=== PATIENT | female | born 1950 | race Caucasian/White ===

== ENCOUNTER 2017-01-06 13:06 | Emergency (ER) | payer OTHER ==
[~2017-01-06] VITALS: Ht 154.9 cm; Wt 98.9 kg
[2017-01-06 13:06] VITALS: BP_SYST 143
[~2017-01-06 13:06] MED LIST: ALBU8.5H8 INH; BACL10TA PO; FLUTICASONE PROP; GABA-531 PO; INSU100V SQ; LACT10SO66 PO; MELA3TAB37 PO; METO2.5T6 PO; NPH,100V SUBCUT; OMEP40CA33 PO; RANI-362 PO; RIFA550T5 PO; SPIR25TA4 PO
--- NOTE | 2017-01-06 13:06 | NUR ---
BROUGHT BACK TO BED #7 VIA WHEELCHAIR, PLACED IN BED AND TRIAGED. REPORT GIVEN TO POOL
--- NOTE | 2017-01-06 13:08 | NUR ---
Pt states had stress test yesterday and has had headache, jaw & chest pressure along w/ intermittent shortness of breath w/ exertion. No shortness of breath noted at this time. No other complaints/injuries per pt or noted.
--- NOTE | 2017-01-06 13:10 | NUR ---
ER Dr. Rios at bedside examining patient.
[2017-01-06 14:16] LABS: BASOPHILS % (AUTO) 0.8 % (0.0-2.0); EOSINOPHILS % (AUTO) 0.7 % (0.0-4.0); HEMATOCRIT 31.5 % (36-48); HEMOGLOBIN 10.4 g/dL (12.0-16.0); LYMPHOCYTES # (AUTO) 0.9 K/uL (1.0-5.5); LYMPHOCYTES % (AUTO) 17.8 % (20.5-51.5); MEAN CORPUSCULAR HEMOGLOBIN 28 pg (27-31); MEAN CORPUSCULAR HGB CONC 33 % (32-36); MEAN CORPUSCULAR VOLUME 85 fL (79.0-98.0); MONOCYTES # (AUTO) 0.5 K/uL (0.0-1.0); MONOCYTES % (AUTO) 10.2 % (1.7-9.3); NEUTROPHILS # (AUTO) 3.7 K/uL (1.8-7.7); NEUTROPHILS % (AUTO) 70.5 % (40.0-70.0); PLATELET COUNT (AUTO) 78 K/uL (130-430); RED BLOOD CELL COUNT(AUTO) 3.69 MIL/uL (4.2-6.2); RED CELL DISTRIBUTION WIDTH 15.8 % (9.0-15.0); WHITE BLOOD COUNT (AUTO) 5.1 K/uL (4.8-10.8)
[2017-01-06 14:22] LABS: CALCIUM 9.2 mg/dL (8.4-11.0); CREATININE 1.23 mg/dL (0.55-1.30); POTASSIUM 3.8 mmol/L (3.5-5.1)
[2017-01-06 14:26] LABS: INR 1.2 (0.8-1.2)
[2017-01-06 14:27] LABS: ALBUMIN 2.7 g/dL (3.4-4.8); TOTAL BILIRUBIN 2.2 mg/dL (0.0-1.0)
[2017-01-06] MEDS ORDERED: KETOROLAC TROMETHAMINE 30 MG VIAL IVP ONE (15:00)
[2017-01-06] MEDS ORDERED: ONDANSETRON HCL 4 MG/2 ML VIAL IVP ONE (15:00)
[2017-01-06] MEDS ORDERED: NS 500 ML IV ONE (15:00)
--- NOTE | 2017-01-06 16:00 | NUR ---
Urine specimen collected and sent to lab. Results will be given to NACHO CHRISTIAN.
[2017-01-06 16:20] VITALS: BP_SYST 127
--- NOTE | 2017-01-06 16:20 | NUR ---
Patient given written and verbal discharge instructions and verbalizes understanding. ER MD discussed with patient the results and treatment provided. Patient in stable condition. ID arm band removed. IV catheter removed intact and dressing applied, no active bleeding. No Rx given. Patient educated on pain management and to follow up with PMD in 2 days. Pain Scale 0/10 Opportunity for questions provided and answered.
[2017-01-06 16:33] LABS: BILIRUBIN,URINE NEGATIVE (NEGATIVE); BLOOD, URINE NEGATIVE (NEGATIVE); CLARITY/URINE CLEAR (CLEAR); COLOR,URINE YELLOW (YELLOW); GLUCOSE,URINE NEGATIVE (NEGATIVE); KETONES,URINE NEGATIVE (NEGATIVE); LEUKOCYTE ESTERASE ,URINE NEGATIVE (NEGATIVE); NITRITE, URINE NEGATIVE (NEGATIVE); PROTEIN URINE NEGATIVE (NEGATIVE); UROBILINOGEN,URINE 0.2 (0.2-1.0)
== END 2017-01-06 16:20 | disposition home or self-care (01) ==
LOC: SED 13:06
DX: R07.89 Other chest pain (principal); R19.7 Diarrhea, unspecified; R53.1 Weakness; J45.909 Unspecified asthma, uncomplicated; E11.9 Type 2 diabetes mellitus without complications; I10 Essential (primary) hypertension; M54.30 Sciatica, unspecified side; Z79.4 Long term (current) use of insulin; Z88.0 Allergy status to penicillin; Z88.5 Allergy status to narcotic agent; Z91.041 Radiographic dye allergy status
CPT/HCPCS: 36415; 71010; 80053; 81003; 82140; 82550; 83880; 84484; 85025; 85379; 85610; 85730; 93005; 96361; 96374; 96375; 99285; J1885; J2405; J7030

== ENCOUNTER 2017-02-04 19:58 | Emergency (ER) | payer OTHER ==
[~2017-02-04] VITALS: Ht 154.9 cm; Wt 97.1 kg
[2017-02-04 20:01] VITALS: BP_SYST 155
--- NOTE | 2017-02-04 20:30 | NUR ---
Pt placed to ER bed 02, placed on director of cardiac rehabilitation. Pt c/o non-productive cough and upper c/p with coughing x 2 days. Pt states that her home inhaler has not been effective. SPO2 98% RA. Family member at bedside.
--- NOTE | 2017-02-04 20:45 | NUR ---
Dr. Rivera at bedside to assess pt.
[2017-02-04] MEDS ORDERED: IPRATROPIUM/ALBUTEROL SULFATE 3 ML AMPUL.NEB INH ONE (21:00)
--- NOTE | 2017-02-04 21:00 | NUR ---
RT at bedside, neb tx IP.
--- NOTE | 2017-02-04 21:49 | NUR ---
Pt verbalizes improvement in coughing. Respirations even and non-labored. No needs verbalized at this time.
--- NOTE | 2017-02-04 22:24 | NUR ---
Portable CXR complete.
[2017-02-04 23:15] VITALS: BP_SYST 135
--- NOTE | 2017-02-04 23:15 | NUR ---
Patient given written and verbal discharge instructions and verbalizes understanding. ER MD discussed with patient the results and treatment provided. Patient in stable condition. ID arm band removed. Rx of Proair HFA given. Patient educated on pain management and to follow up with PMD. Pain Scale 0/10. Opportunity for questions provided and answered.
== END 2017-02-04 23:15 | disposition home or self-care (01) ==
LOC: SED 19:58
DX: J45.901 Unspecified asthma with (acute) exacerbation (principal); E11.9 Type 2 diabetes mellitus without complications; I10 Essential (primary) hypertension; Z79.84 Long term (current) use of oral hypoglycemic drugs; Z79.899 Other long term (current) drug therapy; Z88.0 Allergy status to penicillin; Z91.041 Radiographic dye allergy status; Z88.5 Allergy status to narcotic agent
CPT/HCPCS: 71010; 94640; 99283

== ENCOUNTER 2017-03-31 20:35 | Inpatient (IN) | payer OTHER ==
[~2017-03-31] VITALS: Ht 154.9 cm; Wt 100.7 kg
[2017-03-31 21:07] VITALS: BP_SYST 138
[2017-03-31] MEDS ORDERED: NACL 0.9% 1,000 ML IV ONE (22:30)
[2017-03-31] MEDS ORDERED: ACETAMINOPHEN 325 MG TABLET PO ONE (22:30)
[2017-03-31 23:03] LABS: BASOPHILS # (AUTO) 0.1 K/uL (0.0-0.2); HEMOGLOBIN 11.3 g/dL (12.0-16.0); MEAN CORPUSCULAR HEMOGLOBIN 28 pg (27-31); MEAN CORPUSCULAR VOLUME 83 fL (79.0-98.0); RED CELL DISTRIBUTION WIDTH 20.1 % (9.0-15.0)
[2017-03-31 23:07] LABS: CALCIUM 9.3 mg/dL (8.4-11.0); CREATININE 1.61 mg/dL (0.55-1.30); POTASSIUM 4.1 mmol/L (3.5-5.1)
[2017-03-31 23:09] LABS: BASOPHILS % (AUTO) 0.9 % (0.0-2.0); EOSINOPHILS % (AUTO) 0.1 % (0.0-4.0); HEMATOCRIT 33.9 % (36-48); LYMPHOCYTES # (AUTO) 0.6 K/uL (1.0-5.5); LYMPHOCYTES % (AUTO) 4.2 % (20.5-51.5); MEAN CORPUSCULAR HGB CONC 33 % (32-36); MONOCYTES # (AUTO) 0.6 K/uL (0.0-1.0); MONOCYTES % (AUTO) 4.2 % (1.7-9.3); NEUTROPHILS # (AUTO) 13.4 K/uL (1.8-7.7); NEUTROPHILS % (AUTO) 90.6 % (40.0-70.0); RED BLOOD CELL COUNT(AUTO) 4.08 MIL/uL (4.2-6.2); WHITE BLOOD COUNT (AUTO) 14.7 K/uL (4.8-10.8)
[2017-03-31 23:12] LABS: ALBUMIN 2.8 g/dL (3.4-4.8); TOTAL BILIRUBIN 3.4 mg/dL (0.0-1.0)
[2017-03-31 23:14] LABS: PLATELET COUNT (AUTO) 81 K/uL (130-430)
[2017-03-31 23:24] LABS: BILIRUBIN,URINE NEGATIVE (NEGATIVE); BLOOD, URINE NEGATIVE (NEGATIVE); CLARITY/URINE CLEAR (CLEAR); COLOR,URINE YELLOW (YELLOW); GLUCOSE,URINE NEGATIVE (NEGATIVE); KETONES,URINE NEGATIVE (NEGATIVE); LEUKOCYTE ESTERASE ,URINE NEGATIVE (NEGATIVE); NITRITE, URINE NEGATIVE (NEGATIVE); PH,URINE 5.5 (5.0-8.0); PROTEIN URINE NEGATIVE (NEGATIVE); UROBILINOGEN,URINE 0.2 (0.2-1.0)
[2017-04-01 00:48] LABS: INR 1.2 (0.8-1.2); PROTHROMBIN TIME 13.3 SECS (9.5-12.5)
[2017-04-01 00:52] LABS: LIPASE 271 U/L (73-393)
[2017-04-01] MEDS ORDERED: FURO-149 PO (01:24)
[2017-04-01] MEDS ORDERED: GABA-531 PO (01:24)
[2017-04-01] MEDS ORDERED: PRED20TA PO (01:24)
[2017-04-01] MEDS ORDERED: RANI-362 PO (01:24)
[2017-04-01] MEDS ORDERED: SPIR50TA PO (01:24)
[2017-04-01] MEDS ORDERED: NALO25TA PO (01:24)
[2017-04-01] MEDS ORDERED: LUBI24CA5 PO (01:24)
[2017-04-01] MEDS ORDERED: OXYC5TAB84 PO (01:24)
[2017-04-01] MEDS ORDERED: LEVOFLOXACIN 500 MG/D5W 100 ML IV ONE (03:45)
[2017-04-01] MEDS ORDERED: ALBUTEROL SULFATE 0.083% 2.5 MG/3 ML VIAL.NEB INH PRN (04:30)
[2017-04-01] MEDS ORDERED: IPRATROPIUM BROM 0.5 MG/2.5 ML VIAL.NEB (ATROVENT) INH PRN (04:30)
[2017-04-01] MEDS: 0.45% NACL 1,000 ML IV SCH (04:30)
[2017-04-01] MEDS ORDERED: INSULIN REGULAR, HUMAN 100 UNITS/ML, 10 ML VIAL (novoLIN R) SUBCUT PRN (04:30)
[2017-04-01] MEDS ORDERED: HYDROcodone/ACETAMIN 5-325 MG TAB (NORCO/ VICODIN) PO PRN (04:30)
[2017-04-01] MEDS ORDERED: GABAPENTIN 300 MG CAPSULE PO PRN ×2 (04:45→09:45)
[2017-04-01] MEDS ORDERED: metroNIDAZOLE 500 MG TABLET PO ONE (04:45)
[2017-04-01 04:58] VITALS: BP_SYST 125
[2017-04-01] MEDS ORDERED: FLU VACC QS 2017-18(36MOS+)/PF 0.5 ML/SYR SYRINGE I.M. PRN (05:15)
[2017-04-01 05:55] VITALS: BP_SYST 125
[2017-04-01] MEDS: metroNIDAZOLE 500 mg/NS 100 ML IV SCH ×3 (06:00→22:40)
[2017-04-01] MEDS: oxyCODONE HCL 5 MG TABLET PO PRN (06:40)
[2017-04-01] MEDS: INSULIN REGULAR, HUMAN 100 UNITS/ML, 10 ML VIAL (novoLIN R) SUBCUT PRN ×4 (06:43→21:39)
[2017-04-01] MEDS: IPRATROPIUM BROM 0.5 MG/2.5 ML VIAL.NEB (ATROVENT) INH SCH ×5 (07:14→23:27)
[2017-04-01] MEDS: ALBUTEROL SULFATE 0.083% 2.5 MG/3 ML VIAL.NEB INH SCH ×5 (07:14→23:27)
[2017-04-01 08:20] VITALS: BP_SYST 112
[2017-04-01] MEDS ORDERED: LACTULOSE 20 GM/30 ML UDC PO SCH ×2 (09:00→15:00)
[2017-04-01] MEDS: LACTULOSE 20 GM/30 ML UDC PO SCH ×3 (09:03→21:27)
[2017-04-01] MEDS: ONDANSETRON HCL 4 MG/2 ML VIAL IVP PRN ×3 (09:22→18:19)
[2017-04-01] MEDS: BACLOFEN 10 MG TABLET PO SCH ×2 (09:45→21:31)
[2017-04-01] MEDS: MORPHINE 2 MG/ML INJ. SYRINGE IVP PRN ×3 (12:13→21:32)
[2017-04-01 13:09] VITALS: BP_SYST 114
[2017-04-01 17:03] VITALS: BP_SYST 112
[2017-04-01 19:55] VITALS: BP_SYST 129
[2017-04-01] MEDS: LEVOFLOXACIN 500 MG/D5W 100 ML IV SCH (21:24)
[2017-04-01] MEDS: RIFAXIMIN 550 MG TABLET PO SCH (21:31)
[2017-04-01] MEDS: SPIRONOLACTONE 25 MG TABLET (ALDACTONE) PO SCH (21:31)
[2017-04-02] VITALS (7 sets, daily range): BP systolic 110–135
[2017-04-02] MEDS: 0.45% NACL 1,000 ML IV SCH ×2 (02:56→13:50)
[2017-04-02] MEDS: MORPHINE 2 MG/ML INJ. SYRINGE IVP PRN ×3 (02:57→21:06)
[2017-04-02] MEDS: ONDANSETRON HCL 4 MG/2 ML VIAL IVP PRN ×3 (03:04→21:05)
[2017-04-02] MEDS: IPRATROPIUM BROM 0.5 MG/2.5 ML VIAL.NEB (ATROVENT) INH SCH ×6 (04:11→23:00)
[2017-04-02] MEDS: ALBUTEROL SULFATE 0.083% 2.5 MG/3 ML VIAL.NEB INH SCH ×6 (04:12→23:00)
[2017-04-02] MEDS: metroNIDAZOLE 500 mg/NS 100 ML IV SCH ×3 (06:15→22:42)
[2017-04-02] MEDS: INSULIN REGULAR, HUMAN 100 UNITS/ML, 10 ML VIAL (novoLIN R) SUBCUT PRN ×4 (06:21→21:17)
[2017-04-02 06:57] LABS: BASOPHILS # (AUTO) 0.1 K/uL (0.0-0.2); BASOPHILS % (AUTO) 0.9 % (0.0-2.0); EOSINOPHILS # (AUTO) 0.1 K/uL (0.0-0.4); EOSINOPHILS % (AUTO) 1.4 % (0.0-4.0); HEMATOCRIT 26.9 % (36-48); HEMOGLOBIN 8.9 g/dL (12.0-16.0); LYMPHOCYTES % (AUTO) 17.2 % (20.5-51.5); MEAN CORPUSCULAR HEMOGLOBIN 28 pg (27-31); MEAN CORPUSCULAR HGB CONC 33 % (32-36); MEAN CORPUSCULAR VOLUME 83 fL (79.0-98.0); MONOCYTES # (AUTO) 0.6 K/uL (0.0-1.0); MONOCYTES % (AUTO) 10.7 % (1.7-9.3); NEUTROPHILS # (AUTO) 3.9 K/uL (1.8-7.7); NEUTROPHILS % (AUTO) 69.8 % (40.0-70.0); RED BLOOD CELL COUNT(AUTO) 3.23 MIL/uL (4.2-6.2); RED CELL DISTRIBUTION WIDTH 19.8 % (9.0-15.0); WHITE BLOOD COUNT (AUTO) 5.7 K/uL (4.8-10.8)
[2017-04-02 07:09] LABS: CALCIUM 8.5 mg/dL (8.4-11.0); CREATININE 1.19 mg/dL (0.55-1.30); POTASSIUM 4.1 mmol/L (3.5-5.1)
[2017-04-02 07:42] LABS: PLATELET COUNT (AUTO) 55 K/uL (130-430)
[2017-04-02] MEDS: LACTULOSE 20 GM/30 ML UDC PO SCH ×3 (09:27→21:04)
[2017-04-02] MEDS: OMEPRAZOLE 20 MG CAPSULE.DR (PriLOSEC) PO SCH (09:27)
[2017-04-02] MEDS: RIFAXIMIN 550 MG TABLET PO SCH ×2 (09:28→21:05)
[2017-04-02] MEDS: BACLOFEN 10 MG TABLET PO SCH ×2 (09:28→21:05)
[2017-04-02] MEDS: LUBIPROSTONE 24 MCG CAPSULE PO SCH (09:28)
[2017-04-02] MEDS: SPIRONOLACTONE 25 MG TABLET (ALDACTONE) PO SCH ×2 (09:28→21:05)
[2017-04-02] MEDS: METOLAZONE 2.5 MG TABLET PO SCH (09:29)
[2017-04-02] MEDS: oxyCODONE HCL 5 MG TABLET PO PRN ×2 (13:54→22:42)
[2017-04-02] MEDS: LEVOFLOXACIN 500 MG/D5W 100 ML IV SCH (21:04)
[2017-04-03] MEDS: oxyCODONE HCL 5 MG TABLET PO PRN ×2 (02:34→08:16)
[2017-04-03 02:49] VITALS: BP_SYST 107
[2017-04-03] MEDS: IPRATROPIUM BROM 0.5 MG/2.5 ML VIAL.NEB (ATROVENT) INH SCH ×6 (03:00→23:00)
[2017-04-03] MEDS: ALBUTEROL SULFATE 0.083% 2.5 MG/3 ML VIAL.NEB INH SCH ×6 (03:00→23:00)
[2017-04-03] MEDS: metroNIDAZOLE 500 mg/NS 100 ML IV SCH ×3 (05:34→22:17)
[2017-04-03] MEDS: INSULIN REGULAR, HUMAN 100 UNITS/ML, 10 ML VIAL (novoLIN R) SUBCUT PRN ×4 (06:32→21:52)
[2017-04-03] MEDS: ONDANSETRON HCL 4 MG/2 ML VIAL IVP PRN ×3 (06:59→16:59)
[2017-04-03 07:49] LABS: CALCIUM 8.7 mg/dL (8.4-11.0); CREATININE 1.29 mg/dL (0.55-1.30); POTASSIUM 3.8 mmol/L (3.5-5.1); TOTAL BILIRUBIN 2.2 mg/dL (0.0-1.0)
[2017-04-03 08:07] LABS: BASOPHILS % (AUTO) 0.8 % (0.0-2.0); EOSINOPHILS # (AUTO) 0.1 K/uL (0.0-0.4); EOSINOPHILS % (AUTO) 1.8 % (0.0-4.0); HEMATOCRIT 27.8 % (36-48); HEMOGLOBIN 9.1 g/dL (12.0-16.0); LYMPHOCYTES # (AUTO) 1.1 K/uL (1.0-5.5); LYMPHOCYTES % (AUTO) 22.4 % (20.5-51.5); MEAN CORPUSCULAR HEMOGLOBIN 28 pg (27-31); MEAN CORPUSCULAR HGB CONC 33 % (32-36); MONOCYTES # (AUTO) 0.5 K/uL (0.0-1.0); NEUTROPHILS # (AUTO) 3.3 K/uL (1.8-7.7); PLATELET COUNT (AUTO) 64 K/uL (130-430); RED BLOOD CELL COUNT(AUTO) 3.26 MIL/uL (4.2-6.2); RED CELL DISTRIBUTION WIDTH 19.3 % (9.0-15.0)
[2017-04-03 08:10] LABS: MEAN CORPUSCULAR VOLUME 85 fL (79.0-98.0)
[2017-04-03] MEDS: OMEPRAZOLE 20 MG CAPSULE.DR (PriLOSEC) PO SCH (08:14)
[2017-04-03] MEDS: RIFAXIMIN 550 MG TABLET PO SCH ×2 (08:14→21:49)
[2017-04-03] MEDS: METOLAZONE 2.5 MG TABLET PO SCH (08:14)
[2017-04-03] MEDS: LACTULOSE 20 GM/30 ML UDC PO SCH ×3 (08:15→21:51)
[2017-04-03] MEDS: LUBIPROSTONE 24 MCG CAPSULE PO SCH (08:15)
[2017-04-03] MEDS: SPIRONOLACTONE 25 MG TABLET (ALDACTONE) PO SCH ×2 (08:15→21:50)
[2017-04-03] MEDS: BACLOFEN 10 MG TABLET PO SCH ×2 (08:15→21:51)
[2017-04-03 12:23] VITALS: BP_SYST 117
[2017-04-03 16:36] VITALS: BP_SYST 114
[2017-04-03] MEDS: MORPHINE 2 MG/ML INJ. SYRINGE IVP PRN ×2 (16:59→22:25)
[2017-04-03 20:00] VITALS: BP_SYST 122
[2017-04-03] MEDS: LEVOFLOXACIN 500 MG/D5W 100 ML IV SCH (21:07)
[2017-04-04] VITALS (7 sets, daily range): BP systolic 113–123
[2017-04-04] MEDS: IPRATROPIUM BROM 0.5 MG/2.5 ML VIAL.NEB (ATROVENT) INH SCH ×6 (03:38→23:18)
[2017-04-04] MEDS: ALBUTEROL SULFATE 0.083% 2.5 MG/3 ML VIAL.NEB INH SCH ×6 (03:38→23:18)
[2017-04-04] MEDS: INSULIN REGULAR, HUMAN 100 UNITS/ML, 10 ML VIAL (novoLIN R) SUBCUT PRN ×4 (05:46→22:00)
[2017-04-04 06:42] LABS: BASOPHILS % (AUTO) 0.9 % (0.0-2.0); EOSINOPHILS # (AUTO) 0.1 K/uL (0.0-0.4); HEMATOCRIT 29.2 % (36-48); HEMOGLOBIN 9.5 g/dL (12.0-16.0); LYMPHOCYTES # (AUTO) 0.9 K/uL (1.0-5.5); LYMPHOCYTES % (AUTO) 22.7 % (20.5-51.5); MEAN CORPUSCULAR HEMOGLOBIN 28 pg (27-31); MEAN CORPUSCULAR HGB CONC 33 % (32-36); MEAN CORPUSCULAR VOLUME 84 fL (79.0-98.0); MONOCYTES # (AUTO) 0.4 K/uL (0.0-1.0); MONOCYTES % (AUTO) 11.3 % (1.7-9.3); NEUTROPHILS # (AUTO) 2.6 K/uL (1.8-7.7); NEUTROPHILS % (AUTO) 62.1 % (40.0-70.0); PLATELET COUNT (AUTO) 76 K/uL (130-430); RED BLOOD CELL COUNT(AUTO) 3.47 MIL/uL (4.2-6.2); RED CELL DISTRIBUTION WIDTH 19.3 % (9.0-15.0)
[2017-04-04] MEDS: ONDANSETRON HCL 4 MG/2 ML VIAL IVP PRN ×3 (06:55→22:00)
[2017-04-04] MEDS: metroNIDAZOLE 500 mg/NS 100 ML IV SCH ×3 (06:55→22:42)
[2017-04-04] MEDS: MORPHINE 2 MG/ML INJ. SYRINGE IVP PRN ×2 (06:56→21:51)
[2017-04-04 07:04] LABS: ALBUMIN 2.2 g/dL (3.4-4.8); BILIRUBIN,DIRECT 1.3 mg/dL (0.0-0.3); CALCIUM 8.9 mg/dL (8.4-11.0); CREATININE 1.3 mg/dL (0.55-1.30); POTASSIUM 3.4 mmol/L (3.5-5.1); TOTAL BILIRUBIN 2.3 mg/dL (0.0-1.0)
[2017-04-04] MEDS: LACTULOSE 20 GM/30 ML UDC PO SCH ×3 (09:03→21:39)
[2017-04-04] MEDS: RIFAXIMIN 550 MG TABLET PO SCH ×2 (09:04→21:39)
[2017-04-04] MEDS: OMEPRAZOLE 20 MG CAPSULE.DR (PriLOSEC) PO SCH (09:04)
[2017-04-04] MEDS: LUBIPROSTONE 24 MCG CAPSULE PO SCH (09:04)
[2017-04-04] MEDS: BACLOFEN 10 MG TABLET PO SCH ×2 (09:04→21:39)
[2017-04-04] MEDS: METOLAZONE 2.5 MG TABLET PO SCH (09:04)
[2017-04-04] MEDS: SPIRONOLACTONE 25 MG TABLET (ALDACTONE) PO SCH ×2 (09:05→21:39)
[2017-04-04] MEDS: LEVOFLOXACIN 500 MG/D5W 100 ML IV SCH (21:40)
[2017-04-05 00:17] VITALS: BP_SYST 125
[2017-04-05 03:29] VITALS: BP_SYST 130
[2017-04-05] MEDS: ALBUTEROL SULFATE 0.083% 2.5 MG/3 ML VIAL.NEB INH SCH ×6 (03:30→23:00)
[2017-04-05] MEDS: IPRATROPIUM BROM 0.5 MG/2.5 ML VIAL.NEB (ATROVENT) INH SCH ×6 (03:30→23:00)
[2017-04-05] MEDS: metroNIDAZOLE 500 mg/NS 100 ML IV SCH ×3 (06:20→22:10)
[2017-04-05] MEDS: INSULIN REGULAR, HUMAN 100 UNITS/ML, 10 ML VIAL (novoLIN R) SUBCUT PRN ×4 (06:29→20:27)
[2017-04-05 07:17] LABS: BASOPHILS % (AUTO) 0.9 % (0.0-2.0); EOSINOPHILS # (AUTO) 0.1 K/uL (0.0-0.4); EOSINOPHILS % (AUTO) 2.6 % (0.0-4.0); HEMATOCRIT 27.5 % (36-48); HEMOGLOBIN 9.1 g/dL (12.0-16.0); LYMPHOCYTES # (AUTO) 1.2 K/uL (1.0-5.5); LYMPHOCYTES % (AUTO) 27.8 % (20.5-51.5); MEAN CORPUSCULAR HEMOGLOBIN 28 pg (27-31); MEAN CORPUSCULAR HGB CONC 33 % (32-36); MEAN CORPUSCULAR VOLUME 84 fL (79.0-98.0); MONOCYTES # (AUTO) 0.5 K/uL (0.0-1.0); MONOCYTES % (AUTO) 12.7 % (1.7-9.3); NEUTROPHILS # (AUTO) 2.5 K/uL (1.8-7.7); RED BLOOD CELL COUNT(AUTO) 3.27 MIL/uL (4.2-6.2); WHITE BLOOD COUNT (AUTO) 4.3 K/uL (4.8-10.8)
[2017-04-05 07:29] LABS: BILIRUBIN,DIRECT 1.1 mg/dL (0.0-0.3); C-REACTIVE PROTEIN QUANT 7.5 mg/dL (0-0.5); CALCIUM 9.2 mg/dL (8.4-11.0); CREATININE 1.28 mg/dL (0.55-1.30); POTASSIUM 3.5 mmol/L (3.5-5.1); TOTAL BILIRUBIN 2.1 mg/dL (0.0-1.0)
[2017-04-05 08:00] VITALS: BP_SYST 109
[2017-04-05 08:33] LABS: ERYTHROCYTE SEDIMENTATION RATE 38 MM/HR (0-20)
[2017-04-05] MEDS: LUBIPROSTONE 24 MCG CAPSULE PO SCH (08:49)
[2017-04-05] MEDS: LACTULOSE 20 GM/30 ML UDC PO SCH ×3 (08:49→20:15)
[2017-04-05] MEDS: RIFAXIMIN 550 MG TABLET PO SCH ×2 (08:49→20:16)
[2017-04-05] MEDS: BACLOFEN 10 MG TABLET PO SCH ×2 (08:50→20:15)
[2017-04-05] MEDS: OMEPRAZOLE 20 MG CAPSULE.DR (PriLOSEC) PO SCH (08:50)
[2017-04-05] MEDS: SPIRONOLACTONE 25 MG TABLET (ALDACTONE) PO SCH ×2 (08:50→20:15)
[2017-04-05] MEDS: ONDANSETRON HCL 4 MG/2 ML VIAL IVP PRN ×3 (08:51→20:15)
[2017-04-05] MEDS: METOLAZONE 2.5 MG TABLET PO SCH (08:51)
[2017-04-05] MEDS: MORPHINE 2 MG/ML INJ. SYRINGE IVP PRN ×3 (08:52→20:16)
[2017-04-05 09:10] LABS: PLATELET COUNT (AUTO) 74 K/uL (130-430)
[2017-04-05 12:03] VITALS: BP_SYST 132
[2017-04-05 16:05] VITALS: BP_SYST 122
[2017-04-05 20:11] VITALS: BP_SYST 127
[2017-04-05] MEDS: LEVOFLOXACIN 500 MG/D5W 100 ML IV SCH (20:34)
[2017-04-06] VITALS: BP_SYST 111
[2017-04-06] MEDS: ONDANSETRON HCL 4 MG/2 ML VIAL IVP PRN ×2 (01:48→09:26)
[2017-04-06] MEDS: IPRATROPIUM BROM 0.5 MG/2.5 ML VIAL.NEB (ATROVENT) INH SCH ×4 (03:00→15:27)
[2017-04-06] MEDS: ALBUTEROL SULFATE 0.083% 2.5 MG/3 ML VIAL.NEB INH SCH ×4 (03:00→15:27)
[2017-04-06 04:37] VITALS: BP_SYST 110
[2017-04-06] MEDS: metroNIDAZOLE 500 mg/NS 100 ML IV SCH ×2 (05:18→14:10)
[2017-04-06] MEDS: INSULIN REGULAR, HUMAN 100 UNITS/ML, 10 ML VIAL (novoLIN R) SUBCUT PRN ×2 (06:28→11:17)
[2017-04-06 08:04] VITALS: BP_SYST 130
[2017-04-06] MEDS: RIFAXIMIN 550 MG TABLET PO SCH (08:13)
[2017-04-06] MEDS: LUBIPROSTONE 24 MCG CAPSULE PO SCH (08:13)
[2017-04-06] MEDS: LACTULOSE 20 GM/30 ML UDC PO SCH ×2 (08:13→14:10)
[2017-04-06] MEDS: BACLOFEN 10 MG TABLET PO SCH (08:14)
[2017-04-06] MEDS: METOLAZONE 2.5 MG TABLET PO SCH (08:14)
[2017-04-06] MEDS: OMEPRAZOLE 20 MG CAPSULE.DR (PriLOSEC) PO SCH (08:14)
[2017-04-06] MEDS: SPIRONOLACTONE 25 MG TABLET (ALDACTONE) PO SCH (08:14)
[2017-04-06] MEDS: MORPHINE 2 MG/ML INJ. SYRINGE IVP PRN (09:27)
[2017-04-06] MEDS ORDERED: LEVO500T20 PO (09:58)
[2017-04-06] MEDS ORDERED: SODIUM CHLORIDE 5% EYE DROPS 15 ML OP PRN (10:15)
[2017-04-06 12:00] VITALS: BP_SYST 119
[2017-04-06 14:21] VITALS: BP_SYST 119; BP_SYST 130
[2017-04-06 16:57] VITALS: BP_SYST 115
== END 2017-04-06 16:25 | disposition home or self-care (01) | DRG 871 ==
LOC: SED 20:35 → SMU 04-01 04:30
PROVIDERS: ADMIT Internal Medicine; ATTEND Internal Medicine
DX: A41.9 Sepsis, unspecified organism (principal); J18.9 Pneumonia, unspecified organism; E11.22 Type 2 diabetes mellitus with diabetic chronic kidney disease; D69.59 Other secondary thrombocytopenia; J45.901 Unspecified asthma with (acute) exacerbation; K74.60 Unspecified cirrhosis of liver; L03.116 Cellulitis of left lower limb; Z68.41 Body mass index [BMI] 40.0-44.9, adult; N18.3 Chronic kidney disease, stage 3 (moderate); M54.30 Sciatica, unspecified side; Z96.659 Presence of unspecified artificial knee joint; E66.9 Obesity, unspecified; D63.8 Anemia in other chronic diseases classified elsewhere; R16.1 Splenomegaly, not elsewhere classified; M54.9 Dorsalgia, unspecified; E86.0 Dehydration; G89.29 Other chronic pain; Z79.4 Long term (current) use of insulin; Z88.0 Allergy status to penicillin; Z91.041 Radiographic dye allergy status; Z88.5 Allergy status to narcotic agent; Z79.899 Other long term (current) drug therapy; Z90.49 Acquired absence of other specified parts of digestive tract
CPT/HCPCS: 36415; 71010; 80048; 80053; 80076; 81003; 82140-TC; 82272; 82962; 83605; 83690-TC; 83735-TC; 84100-TC; 84484; 85025; 85610-TC; 85651-TC; 85730-TC; 86140; 87040-TC; 93005; 93971; 94640; 94760; 96361; 96365; 97110-GP; 97530-GP; 99285; J1815; J1956; J2270; J2405; J3490; J7030; J7050; Q2037

== ENCOUNTER 2020-04-05 13:19 | Inpatient (IN) | payer OTHER, MEDICAID, SELFPAY ==
[~2020-04-05] VITALS: Ht 157.5 cm; Wt 88.9 kg
[~2020-04-05 13:19] MED LIST changes: +FURO-149 PO; +LEVO500T20 PO; +LUBI24CA5 PO; -MELA3TAB37 PO; +MELA3TAB41 PO; +NALO25TA PO; +OMEP40CA13 PO; -OMEP40CA33 PO; +OXYIR5 PO; -SPIR25TA4 PO; +SPIR25TA6 PO
--- NOTE | 2020-04-05 13:20 | NUR ---
Placed in room 6 . Placed on manager monitoring, blood pressure machine and pulse oximeter. To gown for exam. Side rails up. Report given to Yolette BAI
[2020-04-05 13:22] VITALS: BP_SYST 131
--- NOTE | 2020-04-05 13:25 | NUR ---
Pt bib EMS from [facility] for paracentesis as per ordered by Dr. Griffith. V/S stable, pt is afebrile. Currently resting in bed, will continue to monitor.
--- NOTE | 2020-04-05 13:35 | NUR ---
NACHO Maria at bedside examining patient.
--- NOTE | 2020-04-05 13:45 | NUR ---
EKG performed at BS by EMT. Physician given copy of EKG for review.
--- NOTE | 2020-04-05 13:50 | NUR ---
# 22 gauge angiocath placed to LFA. Use of asceptic technique. Opsite placed over site. Blood return noted. Blood for lab drawn from site. Flushed with 10 cc of normal saline. No evidence of infiltration noted. Patient tolerated well.
--- NOTE | 2020-04-05 14:00 | NUR ---
Pt arrived with indwelling Damon catheter. Reports it was placed today. As per Dr. Maria, ok to leave current damon in place. Urine sample collected and sent to lab as per MD order.
[2020-04-05] MEDS: D5/0.45 NS 1,000 ML IV SCH (14:02)
--- NOTE | 2020-04-05 14:11 | NUR ---
Admit orders received from Dr. Griffith, pt will go to 123B.
--- NOTE | 2020-04-05 14:11 | NUR ---
Lab at bedside for blood draw.
--- NOTE | 2020-04-05 14:20 | NUR ---
Lab at bedside for blood draw.
--- NOTE | 2020-04-05 14:27 | NUR ---
Ultra sound and radiologist at bedside for paracentesis, consent signed and placed on chart.
[2020-04-05] MEDS ORDERED: FERR220S6 PO (14:37)
[2020-04-05] MEDS ORDERED: MELA3TAB41 PO (14:37)
[2020-04-05] MEDS ORDERED: RIFA550T5 PO (14:37)
[2020-04-05] MEDS ORDERED: ZINC220T4 PO (14:37)
[2020-04-05] MEDS ORDERED: DOXE25CA3 PO (14:37)
[2020-04-05] MEDS ORDERED: FAMO40TA7 PO (14:37)
[2020-04-05] MEDS ORDERED: NEU300 PO (14:37)
[2020-04-05] MEDS ORDERED: PANT20TA2 PO (14:37)
--- NOTE | 2020-04-05 14:38 | NUR ---
Med rec and belongings list completed.
[2020-04-05 14:50] LABS: BASOPHILS # (AUTO) 0.1 K/uL (0.0-0.2); BASOPHILS % (AUTO) 1.2 % (0.0-2.0); EOSINOPHILS # (AUTO) 0.2 K/uL (0.0-0.4); EOSINOPHILS % (AUTO) 4.4 % (0.0-4.0); HEMATOCRIT 35.7 % (36-48); HEMOGLOBIN 11.7 g/dL (12.0-16.0); LYMPHOCYTES # (AUTO) 1.3 K/uL (1.0-5.5); LYMPHOCYTES % (AUTO) 27.6 % (20.5-51.5); MEAN CORPUSCULAR HEMOGLOBIN 31 pg (27-31); MEAN CORPUSCULAR HGB CONC 33 % (32-36); MEAN CORPUSCULAR VOLUME 95 fL (79.0-98.0); MONOCYTES # (AUTO) 0.4 K/uL (0.0-1.0); MONOCYTES % (AUTO) 9.3 % (1.7-9.3); NEUTROPHILS # (AUTO) 2.7 K/uL (1.8-7.7); NEUTROPHILS % (AUTO) 57.5 % (40.0-70.0); PLATELET COUNT (AUTO) 67 K/uL (130-430); RED BLOOD CELL COUNT(AUTO) 3.75 MIL/uL (4.2-6.2); RED CELL DISTRIBUTION WIDTH 19.8 % (9.0-15.0); WHITE BLOOD COUNT (AUTO) 4.6 K/uL (4.8-10.8)
[2020-04-05 14:59] LABS: BILIRUBIN,URINE NEGATIVE (NEGATIVE); BLOOD, URINE TRACE (NEGATIVE); CLARITY/URINE CLOUDY (CLEAR); COLOR,URINE YELLOW (YELLOW); GLUCOSE,URINE NEGATIVE (NEGATIVE); KETONES,URINE NEGATIVE (NEGATIVE); LEUKOCYTE ESTERASE ,URINE 3+ (NEGATIVE); NITRITE, URINE POSITIVE (NEGATIVE); PH,URINE 8.5 (5.0-8.0); PROTEIN URINE 1+ (NEGATIVE); UROBILINOGEN,URINE 0.2 (0.2-1.0)
[2020-04-05 15:01] LABS: BACTERIA,URINE MANY /HPF (None Seen); CALCIUM OXALATE CRYSTALS,UR 0-10 /HPF (None Seen); MUCUS,URINE None Seen /LPF (None Seen); WBC,URINE >100 /HPF (0-3)
--- NOTE | 2020-04-05 15:36 | NUR ---
Patient will be admitted to care of Dr. Griffith. Admitted to Tele unit. Will go to room 123B. Belongings list completed. Complete and up to date summary report printed. SBAR report to be given at bedside with opportunity for questions. IV site intact and patent
--- NOTE | 2020-04-05 16:15 | NUR ---
ADMISSION: The patient, HAROON DE LA VEGA, 69 y/o, F admitted by LILIYA SOUZA MD, was given written information regarding hospital policies, unit procedures and contact persons. Valuables were checked and noted.
--- NOTE | 2020-04-05 16:20 | NUR ---
Notes Patient is awake, alert and oriented x4. NO resp distress noted. Breathing is even and unlabored. Patient remains on continuous oxygen @ 2LPM, tolerated well. IV site on left FA, 22 gauge intact, flushing well at this time. D5 1/2NS @ 50 cc/hr, infusing at this time. Manuel catheter in place, draining by gravity, peyton, thick colored, sedimentation noted, foul odor. Emptied out 300 cc. Patient denies any NVD, cough or abnormal bleeding. All needs met, call light within reach. Bed in lowest position, alarm on, locked. Will continue to monitor.
[2020-04-05 16:25] LABS: CALCIUM 8.4 mg/dL (8.4-11.0); CREATININE 0.95 mg/dL (0.55-1.30); INR 1.3 (0.8-1.2); POTASSIUM 3.4 mmol/L (3.5-5.1); PROTHROMBIN TIME 13.4 SECS (9.5-12.5)
[2020-04-05 16:31] LABS: ALBUMIN 1.7 g/dL (3.4-4.8)
[2020-04-05 17:11] VITALS: BP_SYST 121; BP_SYST 212
--- NOTE | 2020-04-05 18:45 | NUR ---
Closing Notes Patient is laying in bed at this time. NO resp distress noted. Breathing is even and unlabored. Denies any pain at this time. BS was checked, 136 mg/dL. Still awaiting for diet order from Dr. Griffith. IV site on left FA, 22 gauge intact, D5 1/2 NS @ 50 cc/hr infusing well at this time. Manuel catheter in place, draining by gravity at this time. All needs met at this time. Safety and fall precautions in place. Bed in lowest position, alarm on, locked. Will continue to monitor.
--- NOTE | 2020-04-05 20:09 | NUR ---
HIGH ALERT NOTE: Called Dr. SOUZA back at [phone] identified within the medical roster to verify physician authenticity ABOUT POTASSIUM.
[2020-04-05 20:10] VITALS: BP_SYST 135
--- NOTE | 2020-04-05 20:10 | NUR ---
INITIAL NOTES PATIENT IS STABLE AND LAYING IN BED. NO S/S OF RESPIRATORY DISTRESS NOTED. CALL LIGHT IN REACH. PATIENT SUCCESSFULLY DEMONSTRATES USAGE OF CALL LIGHT. BED IS LOCKED, ALARMED, AND AT THE LOWEST POSITION. FALL, SAFETY, ASPIRATION, COVID, AND RESPIRATORY PRECAUTIONS WILL BE IN PLACE THROUGHOUT THE SHIFT. PLAN OF CARE IS DISCUSSED WITH PATIENT.
[2020-04-05] MEDS ORDERED: POTASSIUM CHLORIDE 20 MEQ TAB.PRT.SR PO ONE (20:15)
--- NOTE | 2020-04-05 22:00 | NUR ---
PT IS STABLE AND EATING A SANDWICH IN BED. NO S/S OF RESPIRATORY DISTRESS NOTED. CALL LIGHT IN REACH.
[2020-04-06] VITALS: BP_SYST 112
--- NOTE | 2020-04-06 02:00 | NUR ---
PT HAD A BOWEL MOVEMENT. PT HAD A BOWEL MOVEMENT ON THE BED WILLARD. PT TOLERATED WELL. NO S/S OF RESPIRATORY DISTRESS NOTED. CALL LIGHT IN REACH.
--- NOTE | 2020-04-06 04:00 | NUR ---
WOUND CARE DONE AT THIS TIME. PT TOLERATED WELL.
--- NOTE | 2020-04-06 05:45 | NUR ---
CONSULT REASON FOR CONSULT: LOW PLATELETS PERSON I SPOKE WITH: POOL CONSULTING PHYSICIAN: DR. PERRIN SOCIAL SERVICE MANAGER PHONE NUMBER: [phone] ORDERING PHYSICIAN: DR. SOUZA
--- NOTE | 2020-04-06 06:32 | NUR ---
CLOSING NOTES PATIENT IS STABLE AND LAYING IN BED. NO S/S OF RESPIRATORY DISTRESS NOTED. CALL LIGHT IN REACH. BED IS LOCKED, ALARMED, AND AT THE LOWEST POSITION. FALL, SAFETY, ASPIRATION, RESPIRATORY, AND COVID PRECAUTIONS HAS BEEN IN PLACE THROUGHOUT THE SHIFT. WILL CONTINUE TO MONITOR UNTIL SBAR REPORT IS ENDORSED TO AM NURSE.
--- NOTE | 2020-04-06 07:30 | NUR ---
OPENING NOTES: RECEIVED PATIENT FROM DIETITIAN CONSULTANT NURSE. PATIENT IS ASLEEP LAYING DOWN IN BED. PATIENT AWAKES WITH VERBAL STIMULI. PATIENT DENIES ANY PAIN AT THE MOMENT. PATIENT IS TOLERATING OXYGEN ON 2 L NASAL CANNULA WITH NO SIGNS OF DISTRESS OR SHORTNESS OF BREATH NOTED. IV SITE IS PATENT WITH NO SIGNS OF INFILTRATION NOTED. SHEA CATHETER INTACT AND DRAINING BY GRAVITY. PATIENT IN STABLE CONDITION. SAFETY, FALL, ASPIRATION AND CONTACT PRECAUTIONS ARE IN PLACE. BED LOCKED IN LOWEST POSITION WITH CALL LIGHT IN REACH. WILL CONTINUE TO MONITOR PATIENT FOR ANY CHANGES.
[2020-04-06 08:06] VITALS: BP_SYST 143
--- NOTE | 2020-04-06 09:00 | NUR ---
Nutrition Update Juanpablo Scale 14 noted. Pt admitted for paracentesis. Diet: Regular BMI: 35.8 kg/m2 RD to follow per nutrition care standards.
[2020-04-06] MEDS: D5/0.45 NS 1,000 ML IV SCH (09:04)
--- NOTE | 2020-04-06 10:32 | NUR ---
RN ROUNDS: PATIENT IS AWAKE AND ALERT x4 LAYING DOWN IN BED. PATIENT IS TOLERATING OXYGEN ON 2 L NASAL CANNULA WITH NO SIGNS OF DISTRESS OR SHORTNESS OF BREATH NOTED. IV SITE IS PATENT WITH NO SIGNS OF INFILTRATION NOTED. SHEA INTACT AND DRAINING BY GRAVITY. PATIENT IN STABLE CONDITION. WILL CONTINUE TO MONITOR PATIENT FOR ANY CHANGES.
[2020-04-06 11:24] LABS: BASOPHILS % (AUTO) 0.7 % (0.0-2.0); EOSINOPHILS # (AUTO) 0.2 K/uL (0.0-0.4); EOSINOPHILS % (AUTO) 5.2 % (0.0-4.0); HEMOGLOBIN 11.9 g/dL (12.0-16.0); LYMPHOCYTES # (AUTO) 1.2 K/uL (1.0-5.5); MEAN CORPUSCULAR HEMOGLOBIN 31 pg (27-31); MEAN CORPUSCULAR HGB CONC 33 % (32-36); MEAN CORPUSCULAR VOLUME 95 fL (79.0-98.0); MONOCYTES # (AUTO) 0.4 K/uL (0.0-1.0); MONOCYTES % (AUTO) 9.2 % (1.7-9.3); NEUTROPHILS # (AUTO) 2.2 K/uL (1.8-7.7); NEUTROPHILS % (AUTO) 55.9 % (40.0-70.0); PLATELET COUNT (AUTO) 52 K/uL (130-430); RED BLOOD CELL COUNT(AUTO) 3.78 MIL/uL (4.2-6.2); RED CELL DISTRIBUTION WIDTH 19.6 % (9.0-15.0)
[2020-04-06 11:28] LABS: INR 1.4 (0.8-1.2); PROTHROMBIN TIME 13.8 SECS (9.5-12.5)
[2020-04-06 11:28] LABS: ALBUMIN 1.6 g/dL (3.4-4.8); CALCIUM 8.3 mg/dL (8.4-11.0); CREATININE 0.82 mg/dL (0.55-1.30); POTASSIUM 4.1 mmol/L (3.5-5.1); TOTAL BILIRUBIN 3.6 mg/dL (0.0-1.0)
--- NOTE | 2020-04-06 12:11 | NUR ---
RN ROUNDS: PATIENT IS ASLEEP LAYING DOWN IN BED. PATIENT IS TOLERATING OXYGEN ON 2 L NASAL CANNULA WITH NO SIGNS OF DISTRESS OR SHORTNESS OF BREATH NOTED. IV SITE IS PATENT WITH NO SIGNS OF INFILTRATION NOTED. PATIENT IN STABLE CONDITION. WILL CONTINUE TO MONITOR PATIENT FOR ANY CHANGES.
[2020-04-06 12:22] VITALS: BP_SYST 120
--- NOTE | 2020-04-06 14:20 | NUR ---
RN ROUNDS: PATIENT IS AWAKE AND ALERT x4 LAYING DOWN IN BED. BEDPAN PROVIDED TO PATIENT. PATIENT WAS CLEANED AND REPOSITIONED. PATIENT TOLERATED IT WELL. PATIENT IS ON 2 L NASAL CANNULA WITH NO SIGNS OF DISTRESS OR SHORTNESS OF BREATH NOTED. IV SITE IS PATENT. SHEA INTACT. PATIENT IN STABLE CONDITION. WILL CONTINUE TO MONITOR PATIENT FOR ANY CHANGES.
[2020-04-06 14:59] LABS: BILIRUBIN,URINE NEGATIVE (NEGATIVE); BLOOD, URINE 1+ (NEGATIVE); CLARITY/URINE SL CLOUDY (CLEAR); COLOR,URINE BROWN (YELLOW); GLUCOSE,URINE NEGATIVE (NEGATIVE); KETONES,URINE TRACE (NEGATIVE); LEUKOCYTE ESTERASE ,URINE 3+ (NEGATIVE); NITRITE, URINE POSITIVE (NEGATIVE); PH,URINE 8.5 (5.0-8.0); PROTEIN URINE 2+ (NEGATIVE); UROBILINOGEN,URINE 0.2 (0.2-1.0)
[2020-04-06 15:17] LABS: BACTERIA,URINE MODERATE /HPF (None Seen); WBC,URINE 50-80 /HPF (0-3)
[2020-04-06 16:51] VITALS: BP_SYST 136
--- NOTE | 2020-04-06 16:53 | NUR ---
RN ROUNDS: PATIENT IS AWAKE AND ALERT x4 LAYING DOWN IN BED. PATIENT IS TOLERATING OXYGEN ON 2 L NASAL CANNULA WITH NO SIGNS OF DISTRESS OR SHORTNESS OF BREATH NOTED. PATIENT DENIES ANY PAIN BUT STATES SHE IS ITCHY. I PROVIDED THE PATIENT WITH LOTION AND RUBBED IT ON HER LEGS. PATIENT TOLERATED IT WELL. IV SITE IS PATENT WITH NO SIGNS OF INFILTRATION NOTED. SHEA INTACT AND DRAINING. PATIENT IN STABLE CONDITION. WILL CONTINUE TO MONITOR PATIENT FOR ANY CHANGES.
--- NOTE | 2020-04-06 18:37 | NUR ---
CLOSING NOTES: PATIENT IS AWAKE AND ALERT x4 LAYING DOWN IN BED. PATIENT SET UP TO EAT DINNER. PATIENT DENIES ANY PAIN AT THE MOMENT. PATIENT IS TOLERATING OXYGEN ON 2 L NASAL CANNULA WITH NO SIGNS OF DISTRESS OR SHORTNESS OF BREATH NOTED. IV SITE IS PATENT WITH NO SIGNS OF INFILTRATION NOTED AND RUNNING FLUIDS ORDERED. SHEA CATHETER INTACT AND DRAINING BY GRAVITY. PATIENT IN STABLE CONDITION. SAFETY, FALL, ASPIRATION AND CONTACT PRECAUTIONS REMAINED IN PLACE THROUGHOUT THE SHIFT. BED LOCKED IN LOWEST POSITION WITH CALL LIGHT IN REACH. WILL ENDORSE PATIENT CARE TO ONCOMING CENTER SALES AND SERVICE ASSOCIATE NURSE.
--- NOTE | 2020-04-06 19:30 | NUR ---
OPENING NOTE RECEIVED PATIENT AWAKE, ALERT X4. IN BED WATCHING TV WITH NO SIGNS OF DISTRESS NOTED. RESPIRATIONS EVEN AND UNLABORED ON OXYGEN 2LPM VIA NC. SHEA CATHETER IN PLACE DRAINING BY GRAVITY, CLOUDY MYRON URINE NOTED, IV SITE PATENT AND INTACT WITH NO SIGNS OF INFILTRATION NOTED. IV FLUIDS RUNNING ORDERED. PATIENT TOLERATING. ISOLATION MEASURES IN PLACE. SAFETY AND FALL PRECAUTIONS IN PLACE. BED LOCKED IN LOW POSITION, CALL LIGHT IN REACH, BED ALARM ON.
[2020-04-06 20:00] VITALS: BP_SYST 128
--- NOTE | 2020-04-06 20:00 | NUR ---
BOWEL MOVEMENT ASSISTED PATIENT WITH BED WILLARD, HAD A BOWEL MOVEMENT. SARAH-CARE PROVIDED. REPOSITIONED PATIENT AND PROVIDED ADDITIONAL WARM BLANKETS REQUESTED.
--- NOTE | 2020-04-06 21:15 | NUR ---
DR SOUZA CALLED DR SOUZA TO REQUEST MEDICATION RECONCILIATION, ACCUCHECKS SINCE PATIENT IS DIABETIC, DIET CHANGE FROM REGULAR TO CCHO, AND MEDICATION FOR PATIENT COMPLAINTS OF ITCHING. OFFERED TO GO OVER EACH OF THE 29 HOME MEDICATIONS WITH PROVIDER HOWEVER DR SOUZA STATED HE WOULD TAKE CARE OF IT. ORDERS RECEIVED TO CHANGE DIET, NO ADDITIONAL ORDERS RECEIVED AT THIS TIME.
--- NOTE | 2020-04-06 21:15 | NUR ---
CALLED DR LIBBY VOGT
--- NOTE | 2020-04-07 01:00 | NUR ---
RN ROUNDS PATIENT RESTING COMFORTABLY WITH EYES CLOSED, NO SIGNS OF DISTRESS
[2020-04-07 04:00] VITALS: BP_SYST 132
--- NOTE | 2020-04-07 06:15 | NUR ---
CLOSING NOTE PATIENT AWAKE WATCHING TV, NO DISTRESS NOTED AT THIS TIME. OXYGEN 2LPM VIA NC IN PLACE WITH NO SIGNS OF SOB NOTED. PATIENT STABLE AT THIS TIME. ISOLATION MEASURES REMAIN IN PLACE, FALL AND SAFETY PRECAUTIONS MAINTAINED THROUGHOUT SHIFT, BED LOCKED IN LOW POSITION, CALL LIGHT WITHIN REACH, BED ALARM ON. WILL CONTINUE TO MONITOR UNTIL ENDOSE CARE TO AM NURSE.
--- NOTE | 2020-04-07 07:25 | NUR ---
OPENING NOTES: RECEIVED PATIENT FROM MEDICAL RECEPTION SPECIALIST NURSE. PATIENT IS ASLEEP LAYING DOWN IN BED. PATIENT AWAKES WITH VERBAL STIMULI. PATIENT DENIES ANY PAIN AT THE MOMENT. PATIENT IS TOLERATING OXYGEN ON 2 L NASAL CANNULA WITH NO SIGNS OF DISTRESS OR SHORTNESS OF BREATH NOTED. WILL ATTEMPT TO WEAN PATIENT OFF OF OXYGEN IF TOLERATED. IV SITE IS PATENT WITH NO SIGNS OF INFILTRATION NOTED AND RUNNING FLUIDS ORDERED. SHEA CATHETER INTACT AND DRAINING CLOUDY MYRON COLORED URINE BY GRAVITY. PATIENT IN STABLE CONDITION. SAFETY, FALL, ASPIRATION AND CONTACT PRECAUTIONS ARE IN PLACE. BED LOCKED IN LOWEST POSITION WITH CALL LIGHT IN REACH. WILL CONTINUE TO MONITOR PATIENT FOR ANY CHANGES.
[2020-04-07 07:43] LABS: TOTAL IRON BIND. CAPACITY 94 ug/dL (250-450)
[2020-04-07] MEDS: D5/0.45 NS 1,000 ML IV SCH (08:00)
[2020-04-07 08:04] VITALS: BP_SYST 111
--- NOTE | 2020-04-07 08:50 | NUR ---
FAMILY CALLED: SPOKE WITH DAUGHTER GREGORY. UPDATED HER AND ANSWERED QUESTIONS TO THE BEST OF MY ABILITY. INFORMED HER THAT I WOULD PUT HER NUMBER ON HER MOM'S CHART SO DR. SOUZA CAN GIVE HER A CALL. WILL NOTIFY MD WHEN HE MAKES HIS ROUNDS.
--- NOTE | 2020-04-07 10:36 | NUR ---
RN ROUNDS: PATIENT IS AWAKE AND ALERT x4 LAYING DOWN IN BED. PATIENT IS TOLERATING OXYGEN ON ROOM AIR AND SATURATING AT 96%. HYGIENE DONE. PATIENT GIVEN BED BATH, HAIR WASHED, NEW GOWN, SOCKS AND INTERDRY APPLIED TO SKIN FOLDS. PATIENT REPOSITIONED AND TOLERATED IT WELL. FEET ARE ELEVATED. PATIENT DENIES ANY PAIN AT THE MOMENT. IV SITE IS PATENT WITH NO SIGNS OF INFILTRATION NOTED. SHEA CATHETER INTACT AND DRAINING BY GRAVITY. PATIENT IN STABLE CONDITION. WILL CONTINUE TO MONITOR PATIENT FOR ANY CHANGES.
[2020-04-07] MEDS: ACETAMINOPHEN 325 MG TABLET PO PRN ×2 (11:40→17:53)
--- NOTE | 2020-04-07 11:40 | NUR ---
PRN TYLENOL: PATIENT COMPLAINED OF PAIN WHILE LAYING DOWN. ATTEMPTED TO REPOSITION PATIENT TO HELP. PATIENT REQUESTED TYLENOL TO HELP. PRN TYLENOL GIVEN TO PATIENT. PATIENT TOLERATED IT WELL. WILL REASSESS PATIENT.
[2020-04-07 12:01] VITALS: BP_SYST 111
--- NOTE | 2020-04-07 12:32 | NUR ---
RN ROUNDS: PATIENT IS AWAKE AND ALERT x4 LAYING DOWN IN BED. PATIENT IS TOLERATING OXYGEN ON ROOM AIR WITH NO SIGNS OF DISTRESS OR SHORTNESS OF BREATH NOTED. PATIENT WAS REPOSITIONED AND TOLERATED IT WELL. IV SITE IS PATENT WITH NO SIGNS OF INFILTRATION NOTED. PATIENT SET UP TO EAT LUNCH. PATIENT IN STABLE CONDITION. WILL CONTINUE TO MONITOR PATIENT FOR ANY CHANGES.
--- NOTE | 2020-04-07 12:35 | NUR ---
MD ROUNDS: DR. SOUZA'S POULTRY TRIMMER TIFFANY BARAKAT CAME TO MAKE HER ROUNDS. INFORMED HER OF PATIENT NEEDING THE MEDICATION RECONCILIATION WELL SOMETHING FOR DVT PROPHYLAXIS AND ACCUCHECKS. SHE STATED SHE IS GOING TO PUT THE ORDERS IN. MD AWARE OF PATIENT'S CONDITION. WILL AWAIT FOR NEW ORDERS.
[2020-04-07] MEDS: DIPHENHYDRAMINE INJ 50 MG/ML VIAL IVP PRN (13:27)
--- NOTE | 2020-04-07 14:44 | NUR ---
RN ROUNDS: PATIENT IS AWAKE AND ALERT x4 LAYING DOWN IN BED TALKING ON THE PHONE. PATIENT IS TOLERATING OXYGEN ON ROOM AIR WITH NO SIGNS OF DISTRESS OR SHORTNESS OF BREATH NOTED. IV SITE IS PATENT WITH NO SIGNS OF INFILTRATION NOTED. PATIENT IN STABLE CONDITION. WILL CONTINUE TO MONITOR PATIENT FOR ANY CHANGES.
--- NOTE | 2020-04-07 16:16 | NUR ---
RN ROUNDS: PATIENT IS ASLEEP LAYING DOWN IN BED. PATIENT IS TOLERATING OXYGEN ON ROOM AIR WITH NO SIGNS OF DISTRESS OR SHORTNESS OF BREATH NOTED. IV SITE IS PATENT WITH NO SIGNS OF INFILTRATION NOTED. PATIENT IN STABLE CONDITION. WILL CONTINUE TO MONITOR PATIENT FOR ANY CHANGES.
[2020-04-07 16:45] VITALS: BP_SYST 107
--- NOTE | 2020-04-07 18:45 | NUR ---
CLOSING NOTES: PATIENT IS AWAKE AND ALERT x4 LAYING DOWN IN BED EATING DINNER. PATIENT DENIES ANY PAIN AT THE MOMENT. PATIENT IS TOLERATING OXYGEN ON ROOM AIR WITH NO SIGNS OF DISTRESS OR SHORTNESS OF BREATH NOTED. IV SITE IS PATENT WITH NO SIGNS OF INFILTRATION NOTED AND RUNNING FLUIDS ORDERED. SHEA CATHETER INTACT AND DRAINING CLOUDY MYRON COLORED URINE BY GRAVITY. PATIENT IN STABLE CONDITION. SAFETY, FALL, ASPIRATION AND CONTACT PRECAUTIONS REMAINED IN PLACE THROUGHOUT THE SHIFT. BED LOCKED IN LOWEST POSITION WITH CALL LIGHT IN REACH. WILL ENDORSE PATIENT CARE TO ONCOMING COMPUTER SCIENCE INSTRUCTOR NURSE.
--- NOTE | 2020-04-07 19:30 | NUR ---
OPENING NOTES RECEIVED SBAR REPORT FROM DAY SHIFT RN. PT RESTING IN BED, ALERT & ORIENTED X4. BREATHING EVEN AND UNLABORED TO ROOM AIR. IV ON 22G LEFT FOREARM INTACT, IVF RUNNING ORDERED RATE. NO S/S OF INFILTRATION NOTED. SHEA CATHETER INTACT, DRAINING BY GRAVITY. CALL LIGHT WITHIN REACH. BED ALARM ON, LOCKED IN LOWEST POSITION. SAFETY, FALL, AND ISOLATION PRECAUTIONS MAINTAINED. WILL CONTINUE TO MONITOR.
--- NOTE | 2020-04-07 19:53 | NUR ---
MEDIATION RECONCILIATION MEDICATION RECONCILIATION WAS NOT DONE SINCE TWO DAYS. CALLED DR. SOUZA TO REQUEST MEDICATION RECONCILIATION. MEDICATION RECONCILIATION WERE DONE BY DR. SOUZA THROUGH THE PHONE. DR. SOUZA STATED THAT THERE IS NO NEEDS TO BE DVT PROPHYLASIX AT THIS TIME FOR THIS PATIENT.
[2020-04-07 20:00] VITALS: BP_SYST 112
[2020-04-07] MEDS ORDERED: GABAPENTIN 300 MG CAPSULE PO PRN (20:00)
[2020-04-07] MEDS: BACLOFEN 10 MG TABLET PO SCH (21:00)
[2020-04-07] MEDS: MELATONIN 3 MG TABLET PO SCH (21:00)
[2020-04-07] MEDS: FAMOTIDINE 20 MG TABLET PO SCH (21:00)
[2020-04-07] MEDS: FUROSEMIDE 40 MG TABLET PO SCH (21:00)
[2020-04-07] MEDS: RIFAXIMIN 550 MG TABLET PO SCH (21:00)
[2020-04-07] MEDS: SPIRONOLACTONE 25 MG TABLET (ALDACTONE) PO SCH (21:00)
[2020-04-07] MEDS: INSULIN REGULAR, HUMAN 100 UNITS/ML, 10 ML VIAL (humuLIN R) SUBCUT PRN (21:00)
[2020-04-07] MEDS: LACTULOSE 20 GM/30 ML UDC PO SCH (21:00)
--- NOTE | 2020-04-07 22:05 | NUR ---
RN ROUNDS PT RESTING IN BED. BREATHING EVEN AND UNLABORED TO ROOM AIR. O2 SAT 93%. PT DENIES ANY PAIN OR SHORTNESS OF BREATH AT THIS TIME. IVF RUNNING ORDERED RATE. PT TOLERATING WELL. SHEA CATHETER INTACT, DRAINING BY GRAVITY. CALL LIGHT WITHIN REACH. SIDE RAILS UP X3. SAFETY, FALL, AND ISOLATION PRECAUTIONS ARE IN PLACE. WILL CONTINUE TO MONITOR.
[2020-04-08] VITALS: BP_SYST 122
--- NOTE | 2020-04-08 01:15 | NUR ---
RN ROUNDS PT SLEEPING. CHEST RISE AND FALL SYMMETRICAL. NO S/S OF SOB NOTED. PT DENIES ANY PAIN AT THIS TIME. IVF RUNNING ORDERED RATE. NO SIGNS OF INFILTRATION NOTED. CALL LIGHT WITHIN REACH. BED ALARM ON, LOCKED IN LOWEST POSITION. SAFETY, FALL, AND ISOLATION PRECAUTIONS MAINTAINED. WILL MONITOR.
[2020-04-08] MEDS: D5/0.45 NS 1,000 ML IV SCH ×2 (02:02→21:21)
[2020-04-08] MEDS: ACETAMINOPHEN 325 MG TABLET PO PRN (05:30)
[2020-04-08] MEDS: DIPHENHYDRAMINE INJ 50 MG/ML VIAL IVP PRN (06:30)
[2020-04-08] MEDS: INSULIN REGULAR, HUMAN 100 UNITS/ML, 10 ML VIAL (humuLIN R) SUBCUT PRN ×3 (06:40→21:00)
[2020-04-08 07:31] LABS: ALBUMIN 1.5 g/dL (3.4-4.8); CALCIUM 7.9 mg/dL (8.4-11.0); CREATININE 1.09 mg/dL (0.55-1.30); POTASSIUM 3.5 mmol/L (3.5-5.1); TOTAL BILIRUBIN 3.2 mg/dL (0.0-1.0)
--- NOTE | 2020-04-08 07:33 | NUR ---
CLOSING NOTES PT RESTING IN BED. BREATHING EVEN AND UNLABORED TO ROOM AIR. IV ON 22G LEFT FOREARM INTACT, IVF RUNNING ORDERED RATE. NO S/S OF INFILTRATION NOTED. SHEA CATHETER INTACT, DRAINING BY GRAVITY. CALL LIGHT WITHIN REACH. BED ALARM ON, LOCKED IN LOWEST POSITION. SAFETY, FALL, AND ISOLATION PRECAUTIONS MAINTAINED. ALL NEEDS ARE MET THROUGHOUT SHIFT. WILL CONTINUE TO MONITOR UNTIL ENDORSE TO DAY SHIFT RN.
[2020-04-08 08:00] VITALS: BP_SYST 145
--- NOTE | 2020-04-08 08:00 | NUR ---
Opening note Received patient AAO, on room air breathing even and unlabored no ronaldo of distress. IV infusing LFA #22 D5 1/2 at 50ml/hr via infusion pump. Manuel draining yellow urine with sediment, to gravity. Bed in low, call light in reach side rails up for safety. Will continue to monitor.
[2020-04-08 08:13] LABS: FOLATE (FOLIC ACID) 5.1 ng/mL (>3.0)
[2020-04-08 08:18] LABS: BASOPHILS # (AUTO) 0.1 K/uL (0.0-0.2); BASOPHILS % (AUTO) 1.3 % (0.0-2.0); EOSINOPHILS # (AUTO) 0.2 K/uL (0.0-0.4); EOSINOPHILS % (AUTO) 4.1 % (0.0-4.0); HEMATOCRIT 32.2 % (36-48); HEMOGLOBIN 10.7 g/dL (12.0-16.0); LYMPHOCYTES # (AUTO) 1.4 K/uL (1.0-5.5); MEAN CORPUSCULAR HEMOGLOBIN 32 pg (27-31); MEAN CORPUSCULAR HGB CONC 33 % (32-36); MEAN CORPUSCULAR VOLUME 95 fL (79.0-98.0); MONOCYTES # (AUTO) 0.4 K/uL (0.0-1.0); MONOCYTES % (AUTO) 9.6 % (1.7-9.3); PLATELET COUNT (AUTO) 69 K/uL (130-430); RED BLOOD CELL COUNT(AUTO) 3.37 MIL/uL (4.2-6.2); RED CELL DISTRIBUTION WIDTH 19.3 % (9.0-15.0); WHITE BLOOD COUNT (AUTO) 4.1 K/uL (4.8-10.8)
[2020-04-08] MEDS: BACLOFEN 10 MG TABLET PO SCH ×2 (08:31→20:36)
[2020-04-08] MEDS: SPIRONOLACTONE 25 MG TABLET (ALDACTONE) PO SCH ×2 (08:31→20:36)
[2020-04-08] MEDS: metOLazone 2.5 MG TABLET PO SCH (08:32)
[2020-04-08] MEDS: LACTULOSE 20 GM/30 ML UDC PO SCH ×3 (08:32→21:05)
[2020-04-08] MEDS: RIFAXIMIN 550 MG TABLET PO SCH ×2 (08:32→20:36)
[2020-04-08] MEDS: FUROSEMIDE 40 MG TABLET PO SCH ×2 (08:32→20:36)
--- NOTE | 2020-04-08 08:55 | NUR ---
Flu vaccine Patient unsure if she has already received the flu vaccine for this season, but will receive it if she has not had it.
[2020-04-08 11:43] VITALS: BP_SYST 130
--- NOTE | 2020-04-08 12:56 | NUR ---
c/o nausea no nausea medication on profile will call MD for orders
--- NOTE | 2020-04-08 13:43 | NUR ---
Dietitian Recommendations *Continue [facility] diet. *Recommend: add Glucerna BID and Bong BID. *Encourage pt to increase PO intake. *Consider appetite stimulant. Please see Nutritional Assessment for details. LUCIANO, RD
[2020-04-08 15:19] VITALS: BP_SYST 127
--- NOTE | 2020-04-08 16:00 | NUR ---
Obtained Covid PCR test frm patient. Tolerated well.
--- NOTE | 2020-04-08 16:18 | NUR ---
WOUND EVALUATION: Wound Consult received from Dr. Griffith. Thank you, Dr. Griffith, for the consult. Patient received in a Maria Elena Bed with an Isoflex TO mattress with low air loss therapy initiated, awake, alert, and oriented. Patient is unable to turn in bed independently. Juanpablo Score is a 15. Past Medical History: Asthma, COPD, Diabetes Mellitus, Hypertension, Liver Cirrhosis. Recent Labs: WBC 4.1, RBC 3.37, hemoglobin 10.7, hematocrit 32.2, platelets 69, sodium 135, BUN 19, creatinine 1.09, GFR 53, glucose 221, POC glucose 217, calcium 7.9, alkaline phosphatase 229, serum total protein 5.5, albumin 1.5, PT 13.8, INR 1.4, d-dimer 1050. Microbiology: Urine culture results positive for Morganella morganii; MRSA screen results negative; Blood culture results x2 in progress; Stool culture for occult blood in progress; Urine culture results in progress; Stool culture for occult blood results negative. Intrinsic factors that delay wound healing: Asthma, COPD, Diabetes Mellitus, Liver Cirrhosis. Extrinsic factors that delay wound healing: Decreased mobility. Wound Assessment: 1. Left breast fold: Intertrigo with erythema and small non-intact skin area, present on admission. Non-intact site has 100% pink tissue. No odor, no drainage. Periwound intact. Non-intact skin area measures 0.2 cm x 0.8 cm. 2. Right breast fold: Intertrigo with erythema, present on admission. No odor, no drainage. Periwound intact. Recommend: Cleanse involved areas with mild soap and water. Pat dry. Apply antifungal powder to involved areas. Dust off excess powder with clean gauze. Cut inter-dry AG cloth to size and place underneath breast fold areas. Perform site care twice daily. Change inter-dry AG every 5 days as needed for cloth soiling or dislodgment. 3. Abdominal fold: Intertrigo with pink erythema, present on admission. Recommend: Cleanse involved area with mild soap and water. Pat dry. Apply antifungal powder to involved areas. Dust off excess powder with clean gauze. Cut inter-dry AG cloth to size and place underneath Abdominal fold area. Perform site care twice daily. Change inter-dry AG every 5 days as needed for cloth soiling or dislodgment. 4. Bilateral perineal/inguinal areas: IAD with erythema and small non-intact skin area, present on admission. Non-intact site has 100% pink tissue. No odor, no drainage. Periwound intact. Non-intact skin area measures 0.2 cm x 0.8 cm. Recommend: Cleanse involved areas with mild soap and water. Pat dry. Apply calmoseptine cream to involved areas. Perform site care 4 times daily as needed for soiling. 5. Sacrococcygeal area: IAD with blanchable red erythema, scar tissue, and dry, flaky skin, present on admission. Recommend: Cleanse site with mild soap and water. Pat dry. Apply Hydraguard moisture barrier cream to dry skin areas. Cover with Sacral foam dressing. Perform site care daily, and as needed for dressing soiling or dislodgement. Do not allow patient to lie in supine at any time. Also recommend: Encourage and assist patient with repositioning side to side only every 2 hours with pillow support and off-load pressure areas with pillows for pressure re-distribution. Offload, elevate and float bilateral heels with one pillow lengthwise under each extremity at all times. Perform skin care and monitor skin integrity Q shift. Use moisture barrier cream on buttocks and other moisture susceptible areas, and use Hydraguard barrier cream on dry skin areas QID and as needed for soiling. Maintain patient on a low air-loss mattress.
--- NOTE | 2020-04-08 16:22 | NUR ---
Discharge Planning: DCP faxed pt referral to [facility] [phone] p [phone] DCP will follow up
[2020-04-08] MEDS ORDERED: MENTHOL/ZINC OXIDE 113 GM OINT. TP PRN (16:45)
[2020-04-08] MEDS: NYSTATIN 15 GM TOPICAL POWDER TP SCH ×2 (17:26→20:36)
--- NOTE | 2020-04-08 17:47 | NUR ---
CONSULTATION PAGED/CALLED Reason for Consultation: [] UTI Person Who was Notified: [] IRENE Consulting Physician: [] DR AFSHAN BUCIO Bin Filler Specialty: [] ID Ordering Physician: [] DR SOUZA
--- NOTE | 2020-04-08 18:44 | NUR ---
Patient in bed eating dinner. On room air breathing even and unlabored, no sign of distress> Urinary catheter container emptied and draining to gravity. Iv infusing D5 1/2 t left forearm #22 at 50 ml/hr. Bed in low, call light in reach side rails up for safety. Will endorse to next shift.
--- NOTE | 2020-04-08 19:15 | NUR ---
OPENING NOTE REPORT RECEIVED FROM DAYSHIFT NURSE. PATIENT RECEIVED LYING IN BED, AWAKE, WATCHING TV, NO S/S OF ACUTE DISTRESS NOTED. BREATHING IS EVEN AND UNLABORED. IVF INFUSING, IV SITE IS PATENT, NO SIGNS OF INFILTRATION OR INFECTION NOTED. SHEA ATTACHED, SECURED, AND DRAINING BY GRAVITY. HOB SLIGHTLY RAISED. CALL LIGHT WITH PATIENT. BED ALARM ON. BED IS LOCKED AND AT LOWEST POSITION. WILL CONTINUE MONITOR.
[2020-04-08 20:00] VITALS: BP_SYST 110
--- NOTE | 2020-04-08 20:30 | NUR ---
BOWEL MOVEMENT PATIENT REQUESTED FOR BEDPAN, PROVIDED BY RN. PATIENT CLEANED AFTER BOWEL MOVEMENT. ALL NEEDS MET. WILL CONTINUE TO MONITOR.
[2020-04-08] MEDS: MELATONIN 3 MG TABLET PO SCH (20:36)
[2020-04-08] MEDS: FAMOTIDINE 20 MG TABLET PO SCH (20:36)
--- NOTE | 2020-04-08 22:30 | NUR ---
ROUNDS PATIENT IN BED, ON HER PHONE, NO SIGNS OF DISCOMFORT NOTED. CHEST RISE AND FALL EVEN BILATERALLY. ALL NEEDS MET. WILL CONTINUE TO MONITOR.
[2020-04-09] VITALS: BP_SYST 112
--- NOTE | 2020-04-09 00:30 | NUR ---
ROUNDS PATIENT IN BED, SLEEPING, NO S/S OF ACUTE DISTRESS NOTED. BREATHING IS EVEN AND UNLABORED. WILL CONTINUE TO MONITOR.
[2020-04-09] MEDS: cefTRIAXone 1 GM in D5W 50 ML IV SCH (02:00)
--- NOTE | 2020-04-09 02:51 | NUR ---
IV ANTIBIOTIC HUNG DR. BUCIO ORDERED ROCEPHIN 1 GM. ANTIBIOTIC HUNG AT THIS TIME, INFUSING WELL, IV SITE PATENT. ALL NEEDS MET. BED ALARM ON. WILL CONTINUE TO MONITOR.
[2020-04-09] MEDS ORDERED: cefTRIAXone 1 GM VIAL ONE (03:06)
--- NOTE | 2020-04-09 04:24 | NUR ---
ROUNDS PATIENT IN BED, SLEEPING. NO SIGNS OF DISCOMFORT NOTED. CHEST RISE AND FALL EVEN BILATERALLY. ALL NEEDS MET. BED ALARM ON. CALL LIGHT WITH PATIENT. WILL CONTINUE TO MONITOR.
--- NOTE | 2020-04-09 06:31 | NUR ---
CLOSING NOTES/WOUNDCARE/PERICARE PATIENT CLEANED AT THIS TIME, PATIENT HAD SMALL BOWEL MOVEMENT, DRESSING CHANGED DONE FOR SACRAL, INTERDRY DRESSING CHANGED, NYASTATIN POWDER APPLIED TO BREAST AND ABDOMINAL FOLDS. PATIENT TOLERATED WELL. IVF INFUSING WELL, IV SITE IS PATENT, NO SIGNS OF INFILTRATION OR INFECTION NOTED. SHEA ATTACHED, SECURED, AND DRAINING BY GRAVITY. ALL NEEDS MET THROUGHOUT SHIFT. FALL, SAFETY, AND ISOLATION PRECAUTIONS MAINTAINED THROUGHOUT SHIFT. WILL CONTINUE TO MONITOR UNTIL PATIENT CARE IS ENDORSED TO ONCOMING DAYSHIFT NURSE.
[2020-04-09] MEDS: INSULIN REGULAR, HUMAN 100 UNITS/ML, 10 ML VIAL (humuLIN R) SUBCUT PRN ×4 (06:44→22:14)
[2020-04-09 06:58] LABS: BASOPHILS % (AUTO) 0.3 % (0.0-2.0); EOSINOPHILS # (AUTO) 0.2 K/uL (0.0-0.4); EOSINOPHILS % (AUTO) 4.9 % (0.0-4.0); HEMATOCRIT 32.5 % (36-48); HEMOGLOBIN 10.9 g/dL (12.0-16.0); LYMPHOCYTES # (AUTO) 1.3 K/uL (1.0-5.5); LYMPHOCYTES % (AUTO) 32.4 % (20.5-51.5); MEAN CORPUSCULAR HEMOGLOBIN 32 pg (27-31); MEAN CORPUSCULAR HGB CONC 33 % (32-36); MEAN CORPUSCULAR VOLUME 95 fL (79.0-98.0); MONOCYTES # (AUTO) 0.4 K/uL (0.0-1.0); MONOCYTES % (AUTO) 10.5 % (1.7-9.3); NEUTROPHILS # (AUTO) 2.1 K/uL (1.8-7.7); NEUTROPHILS % (AUTO) 51.9 % (40.0-70.0); PLATELET COUNT (AUTO) 60 K/uL (130-430); RED CELL DISTRIBUTION WIDTH 19.5 % (9.0-15.0); WHITE BLOOD COUNT (AUTO) 4.1 K/uL (4.8-10.8)
[2020-04-09 07:18] LABS: CALCIUM 8.1 mg/dL (8.4-11.0); CREATININE 1.09 mg/dL (0.55-1.30); POTASSIUM 3.1 mmol/L (3.5-5.1)
[2020-04-09 07:23] LABS: ALBUMIN 1.6 g/dL (3.4-4.8); C-REACTIVE PROTEIN QUANT 4.4 mg/dL (0-0.5); TOTAL BILIRUBIN 3.2 mg/dL (0.0-1.0)
--- NOTE | 2020-04-09 07:30 | NUR ---
INITIAL NOTE PT RESTING QUIETLY IN BED, NO ACUTE DISTRESS NOTED, BREATHING EVEN AND UNLABORED. PT ON ROOM AIR SATING AT 94%. IVF INFUSING WELL. SHEA DRAINING TO GRAVITY. CALL LIGHT WITHIN REACH, BED IN LOW AND LOCKED POSITION WITH BED ALARM ON. ISOLATION PRECAUTIONS REMAIN IN PLACE. Addendum: 04/09/20 at 2294 by Ashleigh Hanks RN WRONG TIME ENTRY
[2020-04-09 07:43] VITALS: BP_SYST 104
--- NOTE | 2020-04-09 08:00 | NUR ---
Opening note. Received patietn awake alert oriented, no c/o pain. IV infusing LFA #22 D5 1/2 at 50ml/hr via infusion pump. Patient on room air breathing even and unlabored no sign of distress. Vital signs WNL. Bed in low, call light in reach side rails up for safety. Will continue to monitor.
[2020-04-09] MEDS: ONDANSETRON HCL 4 MG/2 ML VIAL IVP PRN ×3 (08:30→22:01)
[2020-04-09 08:36] LABS: FERRITIN 577 ng/mL (15-150)
[2020-04-09] MEDS: FUROSEMIDE 40 MG TABLET PO SCH ×2 (09:00→21:59)
[2020-04-09] MEDS: metOLazone 2.5 MG TABLET PO SCH (09:00)
[2020-04-09] MEDS: LACTULOSE 20 GM/30 ML UDC PO SCH ×3 (09:00→21:30)
[2020-04-09] MEDS: SPIRONOLACTONE 25 MG TABLET (ALDACTONE) PO SCH ×2 (09:00→21:59)
[2020-04-09] MEDS: BACLOFEN 10 MG TABLET PO SCH ×2 (09:36→21:30)
[2020-04-09] MEDS: RIFAXIMIN 550 MG TABLET PO SCH ×2 (09:39→21:30)
[2020-04-09] MEDS: NYSTATIN 15 GM TOPICAL POWDER TP SCH ×2 (09:39→21:30)
[2020-04-09] MEDS: oxyCODONE HCL 5 MG TABLET PO PRN ×2 (09:47→22:01)
[2020-04-09] MEDS ORDERED: POTASSIUM CHLORIDE 20 MEQ TAB.PRT.SR PO ONE (11:30)
[2020-04-09 12:00] VITALS: BP_SYST 126
[2020-04-09 15:36] LABS: CALCIUM 8.2 mg/dL (8.4-11.0); CREATININE 1.29 mg/dL (0.55-1.30); POTASSIUM 3.8 mmol/L (3.5-5.1)
[2020-04-09 17:29] VITALS: BP_SYST 121
--- NOTE | 2020-04-09 17:46 | NUR ---
Consultation page Called GI consultation. Dr Hernández production material handler for the group. JAZMYNE Garcia
[2020-04-09] MEDS: D5/0.45 NS 1,000 ML IV SCH (17:47)
--- NOTE | 2020-04-09 18:30 | NUR ---
Closing note Patient resting in bed on room air breathing even and unlabored, no sign of distress. IV infusing LFA #22 D5 1/2 at 50ml/hr, via infusion pump. Set up dinner tray for patient and informed her of its arrival. Bed in low, call light in reach, side rails up for safety. Will endorse to next shift.
--- NOTE | 2020-04-09 19:45 | NUR ---
INITIAL NOTE PT RESTING QUIETLY IN BED, NO ACUTE DISTRESS NOTED, BREATHING EVEN AND UNLABORED. PT ON ROOM AIR SATING AT 94%. IVF INFUSING WELL. SHEA DRAINING TO GRAVITY. CALL LIGHT WITHIN REACH, BED IN LOW AND LOCKED POSITION WITH BED ALARM ON. ISOLATION PRECAUTIONS REMAIN IN PLACE.
[2020-04-09 20:00] VITALS: BP_SYST 123
[2020-04-09] MEDS: FAMOTIDINE 20 MG TABLET PO SCH (21:30)
[2020-04-09] MEDS: MELATONIN 3 MG TABLET PO SCH (21:30)
--- NOTE | 2020-04-09 22:00 | NUR ---
PAIN MEDICATIONS PT COMPLAINING OF ABDOMINAL PAIN AND NAUSEA. PRN OXYCODONE AND ZOFRAN ADMINISTERED AT THIS TIME. WILL CONTINUE TO MONITOR.
[2020-04-10] VITALS: BP_SYST 123
--- NOTE | 2020-04-10 | NUR ---
RN ROUNDS PAIN CONTROLLED AT THIS TIME. PT RESTING QUIETLY, NO ACUTE DISTRESS NOTED, BREATHING EVEN AND UNLABORED. WILL CONTINUE TO MONITOR.
[2020-04-10] MEDS: cefTRIAXone 1 GM in D5W 50 ML IV SCH (01:37)
[2020-04-10 04:00] VITALS: BP_SYST 122
--- NOTE | 2020-04-10 04:00 | NUR ---
RN ROUNDS NO CHANGE IN ASSESSMENT, WILL CONTINUE TO MONITOR.
[2020-04-10] MEDS: INSULIN REGULAR, HUMAN 100 UNITS/ML, 10 ML VIAL (humuLIN R) SUBCUT PRN ×2 (06:47→12:13)
--- NOTE | 2020-04-10 06:52 | NUR ---
CLOSING NOTE PT RESTING QUIETLY IN BED, NO ACUTE DISTRESS NOTED, BREATHING EVEN AND UNLABORED. IVF INFUSING WELL. EMPTIED SHEA, 500CC OUT, CLEAR AND YELLOW. CALL LIGHT WITHIN REACH, BED IN LOW AND LOCKED POSITION WITH BED ALARM ON. ALL NEEDS MET THROUGHOUT SHIFT. WILL CONTINUE TO MONITOR UNTIL PT CARE IS ENDORSED TO MORNING SHIFT RN.
[2020-04-10 07:08] LABS: BASOPHILS % (AUTO) 0.8 % (0.0-2.0); EOSINOPHILS # (AUTO) 0.2 K/uL (0.0-0.4); EOSINOPHILS % (AUTO) 4.2 % (0.0-4.0); HEMATOCRIT 33.4 % (36-48); HEMOGLOBIN 11.2 g/dL (12.0-16.0); LYMPHOCYTES # (AUTO) 1.1 K/uL (1.0-5.5); MEAN CORPUSCULAR HEMOGLOBIN 32 pg (27-31); MEAN CORPUSCULAR HGB CONC 34 % (32-36); MEAN CORPUSCULAR VOLUME 96 fL (79.0-98.0); MONOCYTES # (AUTO) 0.3 K/uL (0.0-1.0); MONOCYTES % (AUTO) 8.1 % (1.7-9.3); NEUTROPHILS # (AUTO) 2.5 K/uL (1.8-7.7); NEUTROPHILS % (AUTO) 59.9 % (40.0-70.0); PLATELET COUNT (AUTO) 75 K/uL (130-430); RED BLOOD CELL COUNT(AUTO) 3.47 MIL/uL (4.2-6.2); RED CELL DISTRIBUTION WIDTH 19.9 % (9.0-15.0); WHITE BLOOD COUNT (AUTO) 4.2 K/uL (4.8-10.8)
--- NOTE | 2020-04-10 07:30 | NUR ---
OPENING NOTE Patient resting in the bed. No acute distress. Skin warm and dry to touch. IV intact to FA, no redness, no swelling, no drainage. On D5 1/2 NS at 50ml/hr, infusing well. On isolation. Safety measure maintained. Bed locked in low position, side rails up, bed alarm on. Call light within reached. Will continue to monitor.
[2020-04-10 07:39] LABS: ALBUMIN 1.6 g/dL (3.4-4.8); CALCIUM 8.2 mg/dL (8.4-11.0); CREATININE 1.22 mg/dL (0.55-1.30); POTASSIUM 3.8 mmol/L (3.5-5.1)
[2020-04-10 07:45] VITALS: BP_SYST 133
--- NOTE | 2020-04-10 08:20 | NUR ---
SEEN AND EXAMINED BY KENZIE ABBOTT WITH ORDER RECEIVED.
[2020-04-10 08:29] LABS: TOTAL BILIRUBIN 2.5 mg/dL (0.0-1.0)
[2020-04-10] MEDS: SPIRONOLACTONE 25 MG TABLET (ALDACTONE) PO SCH ×2 (09:00→10:27)
[2020-04-10] MEDS: metOLazone 2.5 MG TABLET PO SCH ×2 (09:00→10:27)
[2020-04-10] MEDS: BACLOFEN 10 MG TABLET PO SCH ×2 (09:00→10:27)
[2020-04-10] MEDS: FUROSEMIDE 40 MG TABLET PO SCH ×2 (09:00→10:27)
[2020-04-10] MEDS: RIFAXIMIN 550 MG TABLET PO SCH ×2 (09:00→10:27)
[2020-04-10] MEDS: LACTULOSE 20 GM/30 ML UDC PO SCH ×3 (09:00→15:00)
--- NOTE | 2020-04-10 09:15 | NUR ---
PORTABLE X-RAY ABDOMEN DONE AT BEDSIDE.
--- NOTE | 2020-04-10 10:10 | NUR ---
US ABDOMEN DONE AT BEDSIDE.
--- NOTE | 2020-04-10 10:18 | NUR ---
SEEN AND EXAMINED BY JASMINE WILDER.
[2020-04-10] MEDS: NYSTATIN 15 GM TOPICAL POWDER TP SCH (10:28)
[2020-04-10 12:00] VITALS: BP_SYST 137
--- NOTE | 2020-04-10 12:13 | NUR ---
ES=[id number] Humulin R insulin 2 units given per sliding scale as ordered. No acute distress. Safety measure maintained. Bed locked in low position, side rails up, bed alarm on. Call light within reached. Isolation maintained. Continue to monitor.
--- NOTE | 2020-04-10 12:40 | NUR ---
Discharge Planning: DCP followed up with Rosemary parra [phone] p [phone] per Marsha patient can return to [id number], she is aware pt is Covid19 positive. DCP arrange transportation with [facility] ([phone]) 3:00pm BLS. Patient packet taken to nurse station.
--- NOTE | 2020-04-10 13:58 | NUR ---
ALISE STOCK FOR ORDERS SPOKE TO JESSE
--- NOTE | 2020-04-10 14:13 | NUR ---
CALLED AND RECEIVED THE CALL BACK FROM KENZIE ABBOTT. Reported the result of x-ray abdomen and US abdomen to Dr. Hernández with no new order. Also informed to Dr. Hernández, patient will be discharge back to SNF.
[2020-04-10 14:53] VITALS: BP_SYST 137
--- NOTE | 2020-04-10 15:35 | NUR ---
PT TRANSFERRED Report given to BHUMIKA Foss at 1450. Transfer packet with Transfer Orders and Medication Reconciliation form given to EMT with report. Exitcare provided. [facility] ID band removed, replaced with ID band with pt's name and . Keep IV catheter for IV antibiotic. IV intact to LFA, no redness, no swelling, patent. F/C intact. All belongings sent with patient. Patient left floor via gurney escorted by EMT in no distress.
== END 2020-04-10 17:42 | DRG 177 ==
LOC: SED 13:19 → SMU 14:02
PROVIDERS: ADMIT Internal Medicine; ATTEND Internal Medicine
DX: U07.1 COVID-19 (principal); E43 Unspecified severe protein-calorie malnutrition; D61.818 Other pancytopenia; R18.8 Other ascites; N39.0 Urinary tract infection, site not specified; K72.90 Hepatic failure, unspecified without coma; K74.60 Unspecified cirrhosis of liver; E78.5 Hyperlipidemia, unspecified; J45.909 Unspecified asthma, uncomplicated; E11.9 Type 2 diabetes mellitus without complications; F03.90 Unspecified dementia, unspecified severity, without behavioral disturbance, psychotic disturbance, mood disturbance, and anxiety; I10 Essential (primary) hypertension; J44.9 Chronic obstructive pulmonary disease, unspecified; Z88.0 Allergy status to penicillin; Z88.5 Allergy status to narcotic agent; Z68.35 Body mass index [BMI] 35.0-35.9, adult; Z91.041 Radiographic dye allergy status; Z79.899 Other long term (current) drug therapy
CPT/HCPCS: 36415; 71045; 74018; 76700-TC; 76705; 80048; 80053; 81000-TC; 82140-TC; 82272; 82607; 82728; 82746; 82962; 83540-TC; 83550-TC; 83605; 83615-TC; 83880; 85025; 85044-TC; 85379; 85610-TC; 85730-TC; 86140; 87040-TC; 87081; 87086; 93005; 96365; 99285; J0696; J1200; J1956; J2405; J7060; U0003-CS